=== PATIENT | female | born 1960 | race Caucasian/White ===

== ENCOUNTER → 2017-04-25 | Outpatient (CLI) | payer BC ==
--- NOTE | 2017-04-25 13:40 | MAMMOGRAPHY REPORT ---
BILATERAL DIGITAL SCREENING MAMMOGRAM TOMOSYNTHESIS WITH CAD: 04/25/2017 CLINICAL HISTORY: Routine screening. Patient has no complaints. TECHNIQUE: Breast tomosynthesis in addition to standard 2D mammography was performed. Current study was also evaluated with a Computer Aided Detection (CAD) system. COMPARISON: No prior exams were available for comparison. BREAST COMPOSITION: The tissue of both breasts is heterogeneously dense, which may obscure small mas ses. FINDINGS: There is a possible small cluster of microcalcifications in the 5:00 to 6:00 posterior lef t breast, for which additional spot magnification views are recommended. 1 versus 2 possible masses in the central right breast warrant additional spot compression tomosynthesis views and possibly ultr asound. No other suspicious masses, asymmetries, area of architectural distortion or microcavitation are seen bilaterally. IMPRESSION: ACR BI-RADS CATEGORY 0: INCOMPLETE EVALUATION: NEED ADDITIONAL IMAGING EVALUATION The 1 versus 2 possible masses in the central right breast and left breast clustered microcalcificati ons need additional imaging evaluation. The patient will be called to schedule an appointment. Approximately 10% of breast cancers are not detected with mammography. A negative mammographic report should not delay biopsy if a clinically suggestive mass is present. Yuli Braun M.D. ay/:04/25/2017 08:56:17 Clinical Professor: Candace Reynoso, [facility] letter sent: Addl Imaging 0 BI-RADS Code: ACR BI-RADS Category 0: Incomplete Evaluation: Need Additional Imaging Evaluation
== END | disposition home or self-care (01) ==
LOC: C.MAMM 08:06
PROVIDERS: ATTEND Nurse Practitioner Family
DX: Z12.31 Encounter for screening mammogram for malignant neoplasm of breast (principal); R92.0 Mammographic microcalcification found on diagnostic imaging of breast; N63.10 Unspecified lump in the right breast, unspecified quadrant

== ENCOUNTER → 2017-05-09 | Outpatient (CLI) | payer BC ==
--- NOTE | 2017-05-09 15:32 | MAMMOGRAPHY REPORT ---
BILATERAL DIGITAL DIAGNOSTIC MAMMOGRAM TOMOSYNTHESIS AND TARGETED RIGHT ULTRASOUND: 05/09/2017 CLINICAL HISTORY: 56-year-old woman called back from screening for a mass versus 2 masses in the cent ral right breast and left breast macrocalcifications. Prior mammograms were performed greater than 1 0 years ago. TECHNIQUE: Spot magnification left CC and ML views; spot compression tomosynthesis right CC and MLO v iews were obtained. COMPARISON: Comparison is made to exam dated: 04/25/2017 mammogram - [facility]. BREAST COMPOSITION: The tissue of both breasts is heterogeneously dense, which may obscure small mas ses. FINDINGS: Spot magnification views of the left breast demonstrate 3-4 punctate microcalcifications i n a linear distribution in the 5:00 to 6:00 posterior left breast. No associated asymmetry, mass or architectural distortion. These microcalcifications could represent benign fibrocystic change or oth er benign calcifications given the punctate morphology. However, no other calcifications are seen el sewhere in either breast and they are in a linear distribution. Therefore, a short interval follow-u p left diagnostic mammogram including spot magnification views is recommended to ensure stability in 6 months. The spot compression tomosynthesis views of the right breast demonstrates at least one lobulated mass measuring 13 x 17 mm. An additional 12 mm lobulation versus second mass is seen anterior to the fir st. No associated spiculation or architectural distortion. Further characterization with ultrasound was performed. Targeted ultrasound was performed in the 12:00, 6:00 and retroareolar right breast. In the 12:00 per iareolar right breast, there is a hypoechoic solid lobulated mass measuring 14.2 x 9.6 x 11.4 mm. A possible second mass versus prominent fat lobule is seen in the adjacent 12:00 periareolar/retroareol ar breast measuring 8.6 x 6.7 x 7.7 mm. Given the solid nature, the definitive mass in the 12:00 per iareolar right breast measuring 14.2 mm is indeterminate, warranting further characterization with an ultrasound-guided core needle biopsy. IMPRESSION: ACR BI-RADS CATEGORY 4: SUSPICIOUS, TARGETED ULTRASOUND ACR BI-RADS CATEGORY 4: SUSPICIO US 1. Ultrasound-guided core biopsy is recommended for a 14.2 mm solid and lobulated mass in the 12:00 periareolar right breast. This corresponds with the mammographic finding. 2. Pending benign pathology results, would recommend follow-up bilateral diagnostic mammograms in 6 months, to reassess an additional anterior lobulation versus second adjacent mass also in the central right breast, and to reassess 3-4 linear punctate microcalcifications in the left posterior breast. These results and recommendations were discussed with the patient at the time of the exam. She tenta tively scheduled the right breast biopsy prior to leaving our department. Approximately 10% of breast cancers are not detected with mammography. A negative mammographic report should not delay biopsy if a clinically suggestive mass is present. Yuli Braun M.D. ay/:05/09/2017 08:56:07 Driver [employer]ter [employer]: Candace Reynoso, [facility] letter sent: Abnormal 4/5 BI-RADS Code: ACR BI-RADS Category 4: Suspicious Ultrasound BI-RADS: ACR BI-RADS Category 4: Suspici ous
== END | disposition home or self-care (01) ==
LOC: C.MAMM 07:57
PROVIDERS: ATTEND Nurse Practitioner Family
DX: N63.10 Unspecified lump in the right breast, unspecified quadrant (principal); R92.0 Mammographic microcalcification found on diagnostic imaging of breast

== ENCOUNTER → 2017-05-16 | Outpatient (CLI) | payer BC ==
--- NOTE | 2017-05-16 08:37 | Discharge Instructions ---
Discharge Instructions Procedure Procedure Date: May 16, 2017. Reason for visit: Right Mass. Discharge Discharge Date: May 16, 2017. Discharge Diagnosis: post right 12:00 breast mass ultrasound guided core biopsy Instructions Activity Recommendations: Additional Limitations (see below) Return to School/Work: no limitations Recommended Home Diet: No Limitations Provider Instructions: ACTIVITY RECOMMENDATIONS: * No lifting, pushing, pulling or exercising the affected side for three days. RETURN TO SCHOOL/WORK: * You may return to work/school after the procedure, but do not perform any strenuous activities for 24 to 48 hours. MEDICATIONS: * Tylenol (two 325 mg) every four to six hours if needed for mild pain (if not allergic to Tylenol). DIET: * Resume previous diet. SPECIAL CARE INSTRUCTIONS: * Keep biopsy site dry for 24 hours. May shower after 24 hours, but do not soak (bathe) incision. * May remove Tegaderm (plastic patch) tomorrow AFTER showering. * Leave the steri-strips on for one week. Allow the steri-strips to fall off by themselves. If not off after one week, you may remove them. You may place a Bandaid crosswise over the strips, if desired. * Apply ice 10 minutes on and 10 minutes off as needed. * Wear a bra at bedtime to sleep more comfortably for 2-3 days. * Your referring physician should have the results after approximately 5 to 7 business days. * Call for unusual bleeding, fever, drainage, etc or if you have any questions call [phone] during normal business hours or after hours call Dr Braun, . FOLLOW UP VISIT: Follow-up with Referring Physician as scheduled. Yaya Hale Recommendations: Call your doctor if: * Temperature above 101 degrees * Pain not relieved by pain medicine ordered * There is increased drainage or redness from any incision * You have any unanswered questions or concerns. Your Doctors Instructions noted above were prepared by provider Yuli Braun. Patient Signature Section: Patient Instructions Signature Page Dahiana Kamara Patient (or Guardian) Signature/Date: I have read and understand the instructions given to me by my caregivers. Caregiver/RN/Doctor Signature/Date: The above-named patient and/or guardian has received patient instructions on this date. + Original Patient Signature Page (only) stays with chart. Please make copy for patient.
--- NOTE | 2017-05-16 15:06 | MAMMOGRAPHY REPORT ---
ULTRASOUND GUIDED BIOPSY RIGHT BREAST: 05/16/2017 CLINICAL HISTORY: Status post ultrasound-guided core biopsy of an indeterminate lobulated 14 mm mass in the 12:00 retroareolar right breast. COMPARISON: Comparison is made to exams dated: 05/09/2017 mammogram, 05/09/2017 ultrasound, and 2016 mammogram - [facility]. PATIENT CONSENT: The procedure, risks and benefits were discussed with the patient and informed conse nt was obtained both verbally and in writing. Specific risks to this procedure include: bleeding, in fection, puncture of adjacent structure, nontarget biopsy, sampling error, pain, metal allergy and me dication reaction. PROCEDURE DESCRIPTION: A time out was performed and the right breast was agreed as the site of biopsy . The skin was prepped and draped in the usual sterile fashion. The lobulated hypoechoic 14 mm mass i n the 12:00 retroareolar right breast was chosen as the target for biopsy. Subcutaneous and intrapare nchymal 1% buffered lidocaine, with and without epinephrine, was administered as local anesthesia. A skin incision was made. Through the incision, 4 samples were taken with a 14 gauge Achieve biopsy de vice. A ribbon shaped metallic marker was placed at the biopsy site. Hemostasis was achieved after ma nual compression. The patient tolerated the procedure well and there was no immediate complication. The samples were sent to the pathology department in an appropriately labeled container. Postprocedure right CC and ML tomosynthesis images were obtained. A new ribbon-shaped biopsy marker clip is seen in the 12:00 retroareolar/central right breast, within a lobulated mammographic mass in question. No significant postbiopsy hematoma identified. Pending benign pathology results, follow-up bilateral diagnostic tomosynthesis mammograms are recomme nded to reassess anterior lobulations versus an adjacent second mass in the 12:00 right breast, and m icrocalcifications in the left breast. IMPRESSION: ULTRASOUND GUIDED BIOPSY Status post ultrasound guided core biopsy of an indeterminate lobulated mass in the 12:00 retroareola r right breast, with biopsy marker placed at the site. Pending benign pathology results, six-month follow-up bilateral diagnostic tomosynthesis mammograms a re recommended to reassess anterior lobulations versus an adjacent second mass in the 12:00 right mayi ast, and microcalcifications in the left breast. The patient will receive notification of the biopsy results from her referring physician. Yuli Braun M.D. ay/:05/16/2017 08:45:36 Stitcher Standard Machine: Felecia BOLTON)Viv), [facility]
--- NOTE | 2017-05-16 15:10 | MAMMOGRAPHY REPORT ---
UNILATERAL RIGHT DIGITAL DIAGNOSTIC MAMMOGRAM TOMOSYNTHESIS: 05/16/2017 CLINICAL HISTORY: 56-year-old woman presents presents for biopsy of an indeterminate 14 mm hypoechoic solid appearing mass in the 12:00 periareolar/retroareolar right breast. Please refer to the report from right breast ultrasound guided core biopsy performed at the same time for full detail. IMPRESSION: POST PROCEDURE IMAGING FOR MARKER PLACEMENT Please refer to the report from right breast ultrasound guided core biopsy performed at the same time for full detail. Approximately 10% of breast cancers are not detected with mammography. A negative mammographic report should not delay biopsy if a clinically suggestive mass is present. Yuli Braun M.D. ay/:05/16/2017 08:36:04 Metallurgical Technician: Felecia BOLTON)(M), [facility] BI-RADS Code: Post Procedure Imaging For Marker Placement
== END | disposition home or self-care (01) ==
LOC: C.MAMM 07:55
PROVIDERS: ATTEND Nurse Practitioner Family
DX: D24.1 Benign neoplasm of right breast (principal)